=== PATIENT | female | born 1975 | race Hispanic/Latino ===

== ENCOUNTER 2018-06-10 19:30 | Emergency (ER) | payer OTHER ==
[2018-06-10] MEDS ORDERED: ONDANSETRON 4 MG/2 ML VIAL ONE (20:28)
[2018-06-10] MEDS ORDERED: FENTANYL CITR 100 MCG/2 ML ONE (20:28)
[2018-06-10 20:37] LABS: Potassium 3.2 mmol/L (3.5-5.1)
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
[2018-06-10 20:56] LABS: Absolute Lymphocytes (CBC) 4.7 K/uL (0.7-4.9); Absolute Monocytes 1.1 K/uL (0.1-1.3); Absolute Neutrophil 9.5 K/uL (1.8-8.0); Basophils % 0.7 % (0-1.3); Eosinophils % 1.3 % (0-4.4); Hematocrit 40.8 % (36.0-45.0); Lymphocytes % 30.4 % (15.3-44.8); MCH 29.6 pg (27.0-35.0); MCV 86.3 fL (80-100); MPV 11.2 fL (7.6-11.3); Monocytes % 6.8 % (3.3-12.3); RBC Red Blood Cell Count 4.73 M/uL (3.86-4.86)
[2018-06-10] MEDS ORDERED: KETOROLAC 30 MG/ML INJ ONE (21:01)
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
--- NOTE | 2018-06-11 12:52 | EKG ---
Test Date: 2018-06-10 Test Time: 19:38:42 [employer]: ASHLEE MEASUREMENT RESULTS: Intervals: Rate: 78 MI: 140 QRSD: 84 QT: 382 QTc: 435 [place]: P: 1 MI: 140 QRS: 92 T: 11 INTERPRETIVE STATEMENTS: Normal sinus rhythm Rightward axis Borderline ECG Compared to ECG 12/27/2017 12:59:02 Right-axis deviation now present Sinus arrhythmia no longer present Left-axis deviation no longer present Myocardial infarct finding no longer present Electronically Signed On 06-11-18 12:51:17 CDT by Harpreet Carbajal
== END 2018-06-10 22:33 | disposition home or self-care (01) ==
LOC: ER 19:30
DX: S93.402A Sprain of unspecified ligament of left ankle, initial encounter (principal); S83.92XA Sprain of unspecified site of left knee, initial encounter; S39.81XA Other specified injuries of abdomen, initial encounter; F17.210 Nicotine dependence, cigarettes, uncomplicated; V49.50XA Passenger injured in collision with unspecified motor vehicles in traffic accident, initial encounter; Y93.89 Activity, other specified; Y92.89 Other specified places as the place of occurrence of the external cause; Y99.9 Unspecified external cause status
CPT/HCPCS: 36415; 71045; 71250; 72170; 74176; 80048; 85025; 93005; 96374; 96375; 99285; J2405; J3010

== ENCOUNTER 2023-12-06 11:51 | Inpatient (IN) | payer BC, OTHER ==
--- OUTSIDE RECORDS SUMMARY | 2023-12-06 11:54 | XMS REPORT | Continuity of Care Document ---
Author Name Unknown Address [address] [place] [address] [address] [place] [address] [facility] thconnect Address [address] [facility] [address] [place] [address] Care Team Providers Care Gunnery/Ordnance Officer Name Role Phone Unavailable Unavailable Unavailable Problems Condition Name Condition Details Condition Category Status Onset Date Resolution Date Last Treatment Date Treating Clinician Comments Source Mild intermitte nt asthma without complicati on Mild intermitte nt asthma without complicati on Problem Active [facility] Chronic seasonal allergic rhinitis Chronic seasonal allergic rhinitis Problem Active [facility] Medications Ordered Medication Name Filled Medication Name Start Date Stop Date Current Medication? Ordering Clinician Indication Dosage Frequency Signature (SIG) Comments Components Source Diclofenac Sodium Diclofenac Sodium 06-16 00:00: 00 08-15 00:00 :00 No Michael Levi 1 tablet with food or milk [facility] Tramadol HCl Tramadol HCl 06-16 00:00: 00 06-26 00:00 :00 No Michael Levi 1 tablet as needed [facility] Proventil HFA Proventil HFA 13 00:00: 00 Yes Michael Levi 2 puffs as needed [facility] Encounters Start Date/Time End Date/Time Encounter Type Admission Type Attending Clinicians Care Facility Care Department Encounter ID Source 2018-06-21 14:08:00 2018-06-21 14:08:00 Outpatient [facility] [id number] [facility] 2018-06-16 15:15:00 2018-06-16 15:15:00 Outpatient [facility] Medicine [facility] [id number] [facility]
[2023-12-06 12:29] LABS: Specific Gravity 1.028 (1.005-1.030)
[2023-12-06 12:32] LABS: Specific Gravity 1.028 (1.005-1.030); Urine Bacteria <20 /HPF (<20); Urine Bilirubin NEGATIVE (Negative); Urine Blood 3+ (OVER) (Negative); Urine Clarity Extremely Turbid (Clear); Urine Color Yellow (Yellow); Urine Glucose NEGATIVE (Negative); Urine Mucus 1+ /HPF (None Seen); Urine Protein 1+ (Negative); Urine RBC >50 /HPF (None Seen); Urine Urobilinogen Normal (Normal); Urine pH 5.5 (5.0-7.0)
[2023-12-06] MEDS ORDERED: MORPHINE 4 MG/ML SYR ONE (12:35)
[2023-12-06] MEDS ORDERED: ONDANSETRON 4 MG/2 ML VIAL ONE (12:35)
[2023-12-06] MEDS ORDERED: NA CHLORIDE 0.9% 1,000 ML ONE (12:37)
[2023-12-06 12:47] LABS: Absolute Lymphocytes (CBC) 1.6 K/uL (0.7-4.9); Hematocrit 41.8 % (36.0-45.0); Lymphocytes % 10.2 % (15.3-44.8); MCV 89.2 fL (80-100); MPV 9.6 fL (7.6-11.3); Platelets 296 thou/uL (152-406); RBC Red Blood Cell Count 4.69 M/uL (3.86-4.86)
[2023-12-06 13:11] LABS: Albumin 3.4 g/dL (3.4-5.0); Bilirubin Total 0.7 mg/dL (0.2-1.0); Potassium 3.7 mEq/L (3.5-5.1); Protein, Total 7.8 g/dL (6.4-8.2)
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
--- NOTE | 2023-12-06 14:00 | ER ---
Nurse's Notes [facility] Name: Alexandria Carl Age: 48 yrs Sex: Female : 1975 Arrival Date: 12/06/2023 Time: 11:51 Bed 19 Private MD: Diagnosis: UTI/ Urinary tract infection, site not specified Presentation: 12/06 12:03 Chief complaint: Patient states: since Thursday having bilateral "kidney pain", received ko1 abx from [facility], treated for UTI but still having pain. Coronavirus screen: At this time, the client does not indicate any symptoms associated with coronavirus-19. Ebola Screen: No symptoms or risks identified at this time. Initial Sepsis Screen: Does the patient meet any 2 criteria? No. Patient's initial sepsis screen is negative. Does the patient have a suspected source of infection? No. Patient's initial sepsis screen is negative. Risk Assessment: Do you want to hurt yourself or someone else? Patient reports no desire to harm self or others. Onset of symptoms was December 06, 2023. 12:03 Method Of Arrival: Ambulatory ko1 12:03 Acuity: NITESH 3 ko1 Triage Assessment: 12:04 General: Appears uncomfortable, Behavior is cooperative, appropriate for age. Pain: ko1 Complains of pain in left low back and right low back. 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 - Social history:: Smoking status: Patient denies any tobacco usage or history of. Screenin:12 [facility] ED Fall Risk Assessment (Adult) History of falling in the last 3 months, me1 including since admission No falls in past 3 months (0 pts) Confusion or Disorientation No (0 pts) Intoxicated or Sedated No (0 pts) Impaired Gait No (0 pts) Mobility Assist Device Used No (0 pt) Altered Elimination No (0 pt) Score/Fall Risk Level 0 - 2 = Low Risk Provided non-skid footwear, Hourly rounding (assess needs \\T\\ fall precautionary measures) done. Abuse screen: Denies threats or abuse. Nutritional screening: No deficits noted. Tuberculosis screening: No symptoms or risk factors identified. Assessment: 12:12 General: Appears uncomfortable, ill, well groomed, well developed, well nourished, me1 Behavior is calm, cooperative, appropriate for age, Reports since Thursday having bilateral "kidney pain", received abx from [facility], treated for UTI but still having pain. Pain: Complains of pain in back and right low back and left low back Pain does not radiate. Pain currently is 9 out of 10 on a pain scale. Quality of pain is described as sharp, Pain began gradually, 2-3 days ago. Is continuous. Neuro: Level of Consciousness is awake, alert, obeys commands, Oriented to person, place, time, situation, Appropriate for age. Cardiovascular: Capillary refill < 3 seconds Patient's skin is warm and dry. Respiratory: Airway is patent Respiratory effort is even, unlabored, Respiratory pattern is regular, symmetrical. : Reports pain in bilateral flank(s), since 5 days ago. Vital Signs: 12:03 BP 139 / 95; Pulse 77; Resp 16; Pulse Ox 100% ; Weight 68.04 kg; Height 5 ft. 7 in. ; ko1 12:15 BP 131 / 86; Pulse 82; Resp 18; Pulse Ox 100% on R/A; me1 13:00 BP 116 / 73; Pulse 68; Resp 18; Pulse Ox 100% on R/A; me1 13:58 Temp 98.1(O); sb4 14:00 BP 126 / 83; Pulse 70; Resp 16; Pulse Ox 100% on R/A; me1 15:00 BP 115 / 73; Pulse 72; Resp 17; Pulse Ox 100% on R/A; me1 12:03 Body Mass Index 23.49 (68.04 kg, 170.18 cm) ko1 ED Course: 11:58 Patient arrived in ED. mg5 12:01 Gaby Boswell PA-C is PHCP. sb4 12:01 Dimas Christianson MD is Attending Physician. sb4 12:04 Triage completed. ko1 12:04 Arm band placed on right wrist. Patient placed in an exam room, on a stretcher, on ko1 pulse oximetry, Patient notified of wait time. 12:11 Kay Dugan, VIVI is Primary Nurse. me1 12:12 Patient has correct armband on for positive identification. Bed in low position. Call me1 light in reach. Side rails up X 1. Provided Education on: POC. Verbalized understanding. . 12:12 No provider procedures requiring assistance completed. me1 12:23 Test, Urine Sent. me1 12:23 UAM Sent. me1 12:33 Inserted saline lock: 22 gauge in right antecubital area, using aseptic technique. me1 12:34 CBC with Diff Sent. me1 12:34 CMP Sent. me1 13:30 CT Abd/Pelvis - IV Contrast Only In Process Unspecified. EDMS 13:59 Jocelyne Ames MD is Hospitalizing Provider. sb4 15:41 Patient admitted, IV remains in place. me1 Administered Medications: 12:42 Drug: NS 0.9% IV 1000 ml IV at 1 bolus Per protocol; 1000 mL bolus Route: IV; Rate: 1 me1 bolus; Site: right antecubital; 15:19 Follow up: IV Status: Completed infusion; IV Intake: 1000ml me1 12:42 Drug: Ondansetron IVP 4 mg IVP once; over 2 minutes Route: IVP; Site: right antecubital;me1 14:02 Follow up: Response: No adverse reaction; Nausea is decreased me1 12:42 Drug: morphine IVP or IV 4 mg IVP once over 4 mins Route: IVP; Infused Over: 4 mins; me1 Site: right antecubital; 14:02 Follow up: Response: No adverse reaction; Pain is decreased me1 14:05 Drug: Rocephin IV 1 grams IV at calculated rate once; Given slow IV push per pharmacy me1 instructions Route: IV; Rate: calculated rate; Site: right antecubital; 14:07 Follow up: Response: No adverse reaction; IV Status: Completed infusion me1 Medication: 12:12 VIS not applicable for this client. me1 Intake: 15:19 IV: 1000ml; Total: 1000ml. me1 Outcome: 13:59 Decision to Hospitalize by Provider. sb4 15:41 Admitted to Med/surg accompanied by tech, via wheelchair, room 202, with chart, Report me1 called to VIVI Muñoz 15:41 Condition: stable 15:41 Instructed on the need for admit, 15:57 Patient left the ED. cm10 Signatures: Dispatcher [employer] Frannie Dominguez, RN RN ko1 Gaby Boswell PA-C PA-C sb4 Karo Zhang RN RN cm10 Kay Dugan RN RN me1 Rossy Pedersen mg5 Corrections: (The following items were deleted from the chart) 12:12 12:03 Chief complaint: Patient states: since Thursday having bilateral "kidney pain", me1 received abx from [place], treated for UTI but still having pain. ko1 12:44 12:12 BP 156 / 101; Pulse 84bpm; Resp 18bpm; Pulse Ox 100% RA; me1 me1
--- NOTE | 2023-12-06 14:00 | EDPHYS ---
Physician Documentation [facility] Name: Alexandria Carl Age: 48 yrs Sex: Female : 1975 Arrival Date: 12/06/2023 Time: 11:51 Bed 19 Private MD: ED Physician Dimas Christianson HPI: 12/06 12:22 This 48 yrs old Female presents to ER via Ambulatory with complaints of flank sb4 pain. 12:23 The patient complains of pain in the left low back and right low back. The pain does sb4 not radiate. Onset: The symptoms/episode began/occurred 1 week(s) ago, and became worse yesterday. Modifying factors: The symptoms are alleviated by nothing. the symptoms are aggravated by palpation/percussion. Associated signs and symptoms: Pertinent positives: dizziness, fever, urinary frequency, nausea, Pertinent negatives: dysuria, hematuria, pain radiating to the lower extremities. The patient has been recently seen by a physician: the patient's primary care provider, 4 day(s) ago. UTI symptoms x 1 week. started keflex 6 days ago, did not improve. started on levaquin 4 days ago, still not improving. complains of bilateral back pain, fever, chills, nausea. 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 - Social history:: Smoking status: Patient denies any tobacco usage or history of. ROS: 12:23 Respiratory: Negative for shortness of breath, cough, wheezing, and pleuritic chest sb4 pain, 12:23 Constitutional: Positive for chills, fever, 12:23 Abdomen/GI: Positive for nausea, 12:23 Back: Positive for flank pain, bilaterally, 12:23 : Positive for urinary frequency, pressure, 12:23 All other systems are negative, Exam: 12:23 Head/Face: Normocephalic, atraumatic. Eyes: Extra-ocular motions intact. Periorbital sb4 areas with no swelling, redness, or edema. ENT: Mucous membranes moist. Cardiovascular: Regular rate and rhythm with a normal S1 and S2. Respiratory: Lungs have equal breath sounds bilaterally, clear to auscultation and percussion. No rales, rhonchi or wheezes noted. No increased work of breathing, no retractions or nasal flaring. Abdomen/GI: Soft, non-tender, no distension. Skin: Warm, dry with normal turgor. Normal color with no rashes, no lesions, and no evidence of cellulitis. MS/ Extremity: Pulses equal, no cyanosis. Neurovascular intact. Full, normal range of motion. Neuro: Awake and alert, GCS 15, oriented to person, place, time, and situation. Motor strength 5/5 in all extremities. Sensory grossly intact. 12:23 Constitutional: The patient appears alert, awake, uncomfortable, 12:23 Back: CVA tenderness, that is moderate, is noted bilaterally, Vital Signs: 12:03 BP 139 / 95; Pulse 77; Resp 16; Pulse Ox 100% ; Weight 68.04 kg; Height 5 ft. 7 in. ; ko1 12:15 BP 131 / 86; Pulse 82; Resp 18; Pulse Ox 100% on R/A; me1 13:00 BP 116 / 73; Pulse 68; Resp 18; Pulse Ox 100% on R/A; me1 13:58 Temp 98.1(O); sb4 14:00 BP 126 / 83; Pulse 70; Resp 16; Pulse Ox 100% on R/A; me1 15:00 BP 115 / 73; Pulse 72; Resp 17; Pulse Ox 100% on R/A; me1 12:03 Body Mass Index 23.49 (68.04 kg, 170.18 cm) ko1 MDM: 12:01 Patient medically screened. sb4 12:23 Differential diagnosis: nephrolithiasis, pyelonephritis, UTI. sb4 13:59 Data reviewed: vital signs, nurses notes, lab test result(s), radiologic studies, I sb4 have discussed the patient's presentation/case with the attending Emergency Department Physician; and as a result, I will admit patient. Consideration of Admission/Observation Patient was admitted/placed on observation. Management of patient was discussed with the following: Hospitalist: paloma silva. Historians other than the Patient: Spouse/Significant Other: . Care significantly affected by the following chronic conditions: PKD. Counseling: I had a detailed discussion with the patient and/or guardian regarding the historical points, exam findings, and any diagnostic results supporting the discharge/admit diagnosis, lab results, radiology results, the need for further work-up and treatment in the hospital. 12/06 12:06 Order name: UAM; Complete Time: 12:35 sb4 12/06 12:06 Order name: Test, Urine; Complete Time: 12:32 sb4 12/06 12:22 Order name: CBC with Diff; Complete Time: 12:51 sb4 12/06 12:22 Order name: CMP; Complete Time: 13:15 sb4 12/06 12:22 Order name: Urine Culture sb4 12/06 14:56 Order name: T4 Free; Complete Time: 15:29 EDMS 12/06 14:56 Order name: Urinalysis w/ reflexes EDMS 12/06 14:56 Order name: CBC with Automated Diff EDMS 12/06 14:56 Order name: CBC with Automated Diff EDMS 12/06 14:56 Order name: CBC with Automated Diff EDMS 12/06 14:56 Order name: CBC with Automated Diff EDMS 12/06 14:56 Order name: Comprehensive Metabolic Panel EDMS 12/06 14:56 Order name: Comprehensive Metabolic Panel EDMS 12/06 14:57 Order name: Comprehensive Metabolic Panel EDMS 12/06 14:57 Order name: Comprehensive Metabolic Panel EDMS 12/06 14:57 Order name: Lipid Profile EDMS 12/06 14:57 Order name: Lipid Profile EDMS 12/06 14:57 Order name: Magnesium EDMS 12/06 14:57 Order name: Magnesium EDMS 12/06 14:57 Order name: Magnesium EDMS 12/06 14:57 Order name: Magnesium EDMS 12/06 14:57 Order name: Phosphorus EDMS 12/06 14:57 Order name: Phosphorus EDMS 12/06 14:57 Order name: Phosphorus EDMS 12/06 14:57 Order name: Phosphorus EDMS 12/06 12:22 Order name: CT Abd/Pelvis - IV Contrast Only; Complete Time: 13:46 sb4 12/06 14:56 Order name: CONS Physician Consult EDMS 12/06 12:22 Order name: IV Saline Lock; Complete Time: 12:34 sb4 12/06 12:22 Order name: Labs collected and sent; Complete Time: 12:34 sb4 Administered Medications: 12:42 Drug: NS 0.9% IV 1000 ml IV at 1 bolus Per protocol; 1000 mL bolus Route: IV; Rate: 1 me1 bolus; Site: right antecubital; 15:19 Follow up: IV Status: Completed infusion; IV Intake: 1000ml me1 12:42 Drug: Ondansetron IVP 4 mg IVP once; over 2 minutes Route: IVP; Site: right antecubital;me1 14:02 Follow up: Response: No adverse reaction; Nausea is decreased me1 12:42 Drug: morphine IVP or IV 4 mg IVP once over 4 mins Route: IVP; Infused Over: 4 mins; me1 Site: right antecubital; 14:02 Follow up: Response: No adverse reaction; Pain is decreased me1 14:05 Drug: Rocephin IV 1 grams IV at calculated rate once; Given slow IV push per pharmacy me1 instructions Route: IV; Rate: calculated rate; Site: right antecubital; 14:07 Follow up: Response: No adverse reaction; IV Status: Completed infusion me1 Disposition: 17:01 Co-signature as Attending Physician, Dimas Christianson MD I reviewed the patient's care rn provided by the Advanced Practice Provider and agree with the diagnosis and treatment plan. Disposition Summary: 12/06/23 13:59 Hospitalization Ordered Notes: Hospitalization Status: Observation sb4 Provider: Jocelyne Amse sb4 [facility] sb[facility] Condition: Fair sb4 Problem: new sb4 Symptoms: are unchanged sb4 Bed/Room Type: Standard sb4 Room Assignment: 202(12/06/23 14:46) eb Diagnosis - UTI/ Urinary tract infection, site not specified sb4 Forms: - Medication Reconciliation Form sb4 - SBAR form sb4 - Leadership Thank You Letter sb4 Signatures: Dispatcher [employer] Dimas Brizuela MD MD rn Botello, Elizabeth eb Oliver, Kathy, RN RN Gaby Cavazos PA-C PA-C sb4 Kay Dugan RN RN me1 Corrections: (The following items were deleted from the chart) 14:46 13:59 sb4 eb
[2023-12-06] MEDS ORDERED: CEFTRIAXONE 1000 MG/VIAL ONE (14:03)
[2023-12-06] MEDS ORDERED: ALBUTEROL 2.5 MG/3 ML NEB SOL NEB PRN (14:48)
--- NOTE | 2023-12-06 15:04 | P.HP ---
Certification for Inpatient Patient admitted to: Inpatient With expected LOS: <2 Midnights <Tania Brysonguera - Last Filed: 12/06/23 15:26> Patient History Date of Service: 12/06/23 Reason for admission: Urinary tract infection, PKD History of Present Illness: Ms. Carl is a 48-year-old female with a history of polycystic kidney disease presented to ER via ambulatory with complaints of flank pain. Patient complains of pain in the left lower back and right lower back. The pain do not radiate. Severity of pain is 10 out of 10 which has improved after coming to the emergency room. Associated symptoms are fever, chills, dizziness, urinary frequency and nausea. The symptoms began 1 week ago and her PCP prescribed Keflex 6 days ago and it did not improve started on Levaquin 4 days ago. Patient report her pain got worse yesterday patient, patient has been taking Tylenol 502 tablets every 4 hours for pain relief. ED course Vital signs BP 139/95, pulse 77, respiration 16, pulse ox 100% and temperature 98.1 EKG normal sinus rhythm. Laboratory evaluation CBC showing leukocytosis elevated WBC of 15.7, basic metabolic panel is remarkable for elevated liver enzymes AST of 173, ALT 484. Urinalysis is positive for microscopic hematuria. CT abdomen and pelvis with contrast-No acute intra-abdominal or pelvic finding. Nonobstructive bilateral nephrolithiasis.Enlarged kidneys bilaterally with innumerable lesions of varying complexity consistent with polycystic kidney disease.A possibly solid lesion in the left upper pole measuring 2.2 cm is difficult to exclude. The lesions are in completely assessed on this single phase exam. Admitting the patient with a diagnosis of urinary tract infection. - Past Medical/Surgical History Has patient received pneumonia vaccine in the past: Yes -: Polycystic Kidney Disease Psychosocial/ Personal History: Lives at home with her - Social History Smoking Status: Current some day smoker Smoking therapy provided: Yes Patient receptive to therapy: Yes (Receptive) Alcohol use: Yes CD- Drugs: No Caffeine use: Yes Place of Residence: Home <BrysonEric martinez - Last Filed: 12/06/23 15:26> Date of Service: 12/06/23 <Jocelyne Ames - Last Filed: 12/06/23 15:40> Allergies NKDA Allergy (Uncoded 11/09/15 23:58) Unknown No Known Allergies Allergy (Uncoded 03/13/16 17:37) Unknown Physical Examination - Physical Exam General: Alert, Oriented x3 HEENT: Atraumatic, Normocephalic Neck: Supple, 2+ carotid pulse no bruit Respiratory: Clear to auscultation bilaterally, Normal air movement Cardiovascular: No edema, Normal pulses Capillary refill: <2 Seconds Gastrointestinal: Normal bowel sounds, Soft and benign Musculoskeletal: No clubbing, No swelling Integumentary: No rashes, No significant lesion Neurological: Normal gait, Normal speech - Studies Laboratory Data (last 24 hrs) 12/06/23 12/06/23 12:32 12:32 WBC 15.70 H Hgb 14.0 Hct 41.8 Plt Count 296 Sodium 138 Potassium 3.7 BUN 18 Creatinine 0.73 Glucose 91 Total Bilirubin 0.7 AST 173 H ALT 484 H Alkaline Phosphatase 281 H <Eric Bryson - Last Filed: 12/06/23 15:26> - Studies Laboratory Data (last 24 hrs) 12/06/23 12/06/23 12:32 12:32 WBC 15.70 H Hgb 14.0 Hct 41.8 Plt Count 296 Sodium 138 Potassium 3.7 BUN 18 Creatinine 0.73 Glucose 91 Total Bilirubin 0.7 AST 173 H ALT 484 H Alkaline Phosphatase 281 H <Jocelyne Ames - Last Filed: 12/06/23 15:40> Assessment and Plan - Problems (Diagnosis) (1) Urinary tract infection Current Visit: Yes Status: Acute Qualifiers: Urinary tract infection type: acute cystitis Hematuria presence: with hematuria Qualified Code(s): N30.01 - Acute cystitis with hematuria (2) Polycystic kidney disease Current Visit: Yes Status: Chronic (3) Leucocytosis Current Visit: Yes Status: Acute Qualifiers: Leukocytosis type: unspecified Qualified Code(s): D72.829 - Elevated white blood cell count, unspecified - Plan Urinary tract infection Acute cystitis with microscopic hematuria Leukocytosis Polycystic kidney disease Transaminitis * UTI-patient came in with complaints of flank pain bilateral, nausea, fever chills dizziness and increased urinary frequency.CBC showing elevated WBCs 15.7, positive urine with microscopic hematuria.Patient is known for polycystic kidney disease and kidney stones.Admitted the patient, IV hydration, IV antibiotics, analgesics as needed.Monitor electrolytes and replete * Transaminitiselevated AST 73, ALT 484, patient reports that she has been taking Tylenol 500 mg 2 tablet every 4 hours to get rid of the pain and patient reports that she uses alcohol occasionally. Discussed avoid avoid medications or supplements without consulting medical practitioner or PCP. Discussed to abstain alcohol, patient voiced understanding. * PKD-patient reports she is known to have PKD and kidney stones discussed the CT scan findings, consulted with urologist for further evaluation management of PKD. Consulted from Dr. Hogue urologist, recommendation appreciated. * CT abdomen and pelvis with contrast-No acute intra-abdominal or pelvic finding. Nonobstructive bilateral nephrolithiasis.Enlarged kidneys bilaterally with innumerable lesions of varying complexity consistent with polycystic kidney disease.A possibly solid lesion in the left upper pole measuring 2.2 cm is difficult to exclude. The lesions are incompletely assessed on this single phase exam CODE STATUSfull code DVT prophylaxisLovenox Dietregular Discharge Plan: Home Plan to discharge in: 24 Hours - Advance Directives Does patient have a Living Will: No Does patient have a Durable POA for Healthcare: No - Code Status/Comfort Care Code Status Assessed: Yes (full code) Code Status: Full Code Critical Care: No Time Spent Managing Pts Care (In Minutes): 55 (minutes) <Eric Bryson - Last Filed: 12/06/23 15:26> - Plan Pt seen and examined. I agree with the note by the OUTPATIENT FACILITY PHYSICAL THERAPIST. Pt is a 48 yo female with past medical history of ovarian cyst and polycystic kidney disease who presents bilateral low back pain that started about a week ago and progressively worsened. Of note, her PCP prescribed keflex which pt started last Thursday or 6 days ago. It did not improve and the PCP prescribed levaquin on thursday or 4 days ago, but the symptoms persisted. On admission, lab studies show WBC 15.7, Hgb 14, K 3.7, Cr 0.78, AST 178, ALT [address] abd shows bilateral non-obstructive nephrolithiasis, polycystic kidney disease and 2cm solid lesion in left upper pole. Urinalysis is positive for UTI. At bedside, pt is in NAD. ROS is significant for bilateral flank pain A/P: Sepsis 2/2 acute pyelonephritis: Will continue zosyn and follow up urine cx. CT abd shows early onset of pyelonephritis. 2cm renal lesion: Will follow up with MRI abd for evaluation. Transaminitis: AST 173, ALT 484 and Alk phos 281. Pt was taking tylenol 1000mg Q4h at home. Will avoid hepatotoxin or tylenol. Will check hepatitis panel and trend LFTs. Polycystic kidney disease: It is chronic Bilateral Non-obstructive nephrolithiasis: Will consult Urology. DVT ppx: SCD Code: full <Jocelyne Ames - Last Filed: 12/06/23 15:40>
[2023-12-06] MEDS ORDERED: SODIUM CHLORIDE 0.9% 10ML INJ IV PRN (15:26)
[2023-12-06] MEDS: PIPER TAZO 3.375 GM in NA CHLORIDE 0.9% 100 ML IV SCH (16:57)
[2023-12-06] MEDS: MORPHINE 2 MG/ML SYR IV PRN (16:57)
[2023-12-06] MEDS: NA CHLORIDE 0.9% 1,000 ML IV SCH (16:57)
[2023-12-06 16:58] VITALS: BMI 23.5
[2023-12-06] MEDS: TRAMADOL HCL 50 MG TAB PO PRN (22:39)
[2023-12-07] MEDS: PIPER TAZO 3.375 GM in NA CHLORIDE 0.9% 100 ML IV SCH ×3 (00:43→17:52)
[2023-12-07] MEDS: NA CHLORIDE 0.9% 1,000 ML IV SCH ×4 (00:52→13:19)
[2023-12-07] MEDS: TRAMADOL HCL 50 MG TAB PO PRN ×3 (04:58→19:36)
[2023-12-07 06:21] LABS: Absolute Lymphocytes (CBC) 2.3 K/uL (0.7-4.9); Hematocrit 36.3 % (36.0-45.0); Lymphocytes % 15.6 % (15.3-44.8); MCV 89.3 fL (80-100); MPV 9.3 fL (7.6-11.3); Platelets 278 thou/uL (152-406); RBC Red Blood Cell Count 4.07 M/uL (3.86-4.86)
[2023-12-07 06:41] LABS: Albumin 2.6 g/dL (3.4-5.0); Bilirubin Total 0.6 mg/dL (0.2-1.0); Magnesium 1.9 mg/dL (1.6-2.4); Phosphorus 2.3 mg/dL (2.5-4.9); Potassium 4.1 mEq/L (3.5-5.1); Protein, Total 6.3 g/dL (6.4-8.2)
[2023-12-07] MEDS: ENOXAPARIN 40 MG/0.4 ML SQ SCH (08:07)
[2023-12-07] MEDS: PANTOPRAZOLE 40 MG INJ IVP SCH (08:07)
--- NOTE | 2023-12-07 09:24 | P.PN ---
Subjective Date of Service: 12/07/23 Chief Complaint: Urinary tract infection, PKD Pt is resting comfortably in bed. Her pain is much better after switching from Morphine to tramadol. No other complaints. Review of Systems Unremarkable General: Unremarkable Eyes: Unremarkable ENT: Unremarkable Respiratory: Unremarkable Cardiovascular: Unremarkable Gastrointestinal: Unremarkable Genitourinary: Unremarkable Musculoskeletal: Unremarkable Integumentary: Unremarkable Neurological: Unremarkable Lymphatics: Unremarkable Physical Examination - Vital Signs Temperature: 97.1 F Blood Pressure: 121/60 Pulse: 76 Respirations: 15 Pulse Ox (%): 96 - Physical Exam General: Alert, In no apparent distress, Oriented x3 HEENT: Atraumatic, Normocephalic, PERRLA Neck: Supple, 2+ carotid pulse no bruit Respiratory: Clear to auscultation bilaterally, Normal air movement, Diminished Cardiovascular: No edema, Normal pulses, Regular rate/rhythm, Normal S1 S2 Capillary refill: <2 Seconds Gastrointestinal: Normal bowel sounds, Soft and benign, Non-distended Musculoskeletal: No clubbing, No swelling Integumentary: No rashes, No breakdown Neurological: Normal speech, Normal strength at 5/5 x4 extr, Normal tone, Sensation intact Lymphatics: No axilla or inguinal lymphadenopathy - Studies Laboratory Data (last 24 hrs) 12/06/23 12/06/23 12:32 12:32 WBC 15.70 H Hgb 14.0 Hct 41.8 Plt Count 296 Sodium 138 Potassium 3.7 BUN 18 Creatinine 0.73 Glucose 91 Total Bilirubin 0.7 AST 173 H ALT 484 H Alkaline Phosphatase 281 H Assessment And Plan - Plan Sepsis 2/2 acute pyelonephritis: Will continue zosyn and follow up urine cx. CT abd shows early onset of pyelonephritis. 2cm renal lesion: Will follow up with MRI abd for evaluation. Transaminitis: AST 66 <- 173, ALT 282 <- 484 and Alk phos 239<- 281. Pt was taking tylenol 1000mg Q4h at home. Will avoid hepatotoxin or tylenol. Will check hepatitis panel and trend LFTs. Polycystic kidney disease: It is chronic Bilateral Non-obstructive nephrolithiasis: Will continue IVF and consult Urology. DVT ppx: SCD Code: full Dispo: Pending hospital course.
[2023-12-07] MEDS: MORPHINE 2 MG/ML SYR IV PRN (12:01)
[2023-12-08] MEDS: NA CHLORIDE 0.9% 1,000 ML IV SCH ×2 (00:20→16:25)
[2023-12-08] MEDS: PIPER TAZO 3.375 GM in NA CHLORIDE 0.9% 100 ML IV SCH ×3 (00:22→16:25)
[2023-12-08] MEDS: MORPHINE 2 MG/ML SYR IV PRN ×2 (00:29→12:19)
[2023-12-08] MEDS: TRAMADOL HCL 50 MG TAB PO PRN ×3 (03:13→19:45)
[2023-12-08 06:16] LABS: Absolute Lymphocytes (CBC) 1.6 K/uL (0.7-4.9); Hematocrit 36.5 % (36.0-45.0); Lymphocytes % 9.1 % (15.3-44.8); MCV 89.2 fL (80-100); MPV 8.9 fL (7.6-11.3); Platelets 274 thou/uL (152-406); RBC Red Blood Cell Count 4.09 M/uL (3.86-4.86)
[2023-12-08 06:36] LABS: Albumin 2.9 g/dL (3.4-5.0); Magnesium 2.3 mg/dL (1.6-2.4); Phosphorus 2.3 mg/dL (2.5-4.9); Potassium 3.8 mEq/L (3.5-5.1); Protein, Total 7.3 g/dL (6.4-8.2)
--- NOTE | 2023-12-08 07:11 | P.PN ---
Date of Service: 12/08/23 Subjective: Physical Exam: Vitals: reviewed GEN: Alert, oriented, NAD HEENT: Normal conjunctiva, sclera anicteric CV: Regular rate & rhythm, no edema Pulm: Nonlabored respiraitons, diminished at bases b/l ABD: Soft, nontender, nondistended Neuro: Normal speech, normal affect Problem List: Sepsis secondary to acute pyelonephritis Polycystic kidney disease, chronic Bilateral non-obstructive nephrolithiasis 2cm renal lesion Transaminitis Plan: Sepsis secondary to acute pyelonephritis Polycystic kidney disease, chronic Bilateral non-obstructive nephrolithiasis 2cm renal lesion Transaminitis CT abdomen (12/06): Enlarged kidneys with innumerable lesions of varying complexity consistent with Polycystic kidney disease. Solid 2.2cm solid lesion in left upper pole. non-emergent renal protocol MRI recommended Urinalysis concerning for UTI urine cx: prelim no growth contine empiric zosyn Urology consulted Continue IV fluids PRN analgesics / antiemetics continue PPI LFT elevated on admission, improving Patient reported taking 1000mg tylenol Q4h at home. Trend LFTs DVT ppx: Lovenox
[2023-12-08] MEDS: PANTOPRAZOLE 40 MG INJ IVP SCH (08:37)
[2023-12-08] MEDS: ENOXAPARIN 40 MG/0.4 ML SQ SCH (08:38)
[2023-12-08] MEDS ORDERED: POTASSIUM 25 MEQ EFFERV TAB PO ONE (18:54)
[2023-12-08] MEDS: POTASS/SODIUM PHOSPHATE 1 PKT POWD.PACK PO SCH ×3 (19:45→21:44)
[2023-12-09] MEDS: PIPER TAZO 3.375 GM in NA CHLORIDE 0.9% 100 ML IV SCH ×3 (00:02→16:46)
[2023-12-09] MEDS: TRAMADOL HCL 50 MG TAB PO PRN ×4 (02:30→21:03)
[2023-12-09] MEDS: NA CHLORIDE 0.9% 1,000 ML IV SCH ×3 (03:00→15:13)
[2023-12-09 05:52] LABS: Absolute Lymphocytes (CBC) 1.9 K/uL (0.7-4.9); Hematocrit 33.3 % (36.0-45.0); Lymphocytes % 16.6 % (15.3-44.8); MPV 9.2 fL (7.6-11.3); Platelets 281 thou/uL (152-406); RBC Red Blood Cell Count 3.75 M/uL (3.86-4.86)
[2023-12-09 06:12] LABS: Albumin 2.5 g/dL (3.4-5.0); Bilirubin Total 0.7 mg/dL (0.2-1.0); Magnesium 2.2 mg/dL (1.6-2.4); Phosphorus 2.4 mg/dL (2.5-4.9); Potassium 3.8 mEq/L (3.5-5.1); Protein, Total 6.7 g/dL (6.4-8.2)
[2023-12-09] MEDS: POTASS/SODIUM PHOSPHATE 1 PKT POWD.PACK PO SCH (08:19)
[2023-12-09] MEDS: PANTOPRAZOLE 40 MG INJ IVP SCH (08:19)
[2023-12-09] MEDS: ENOXAPARIN 40 MG/0.4 ML SQ SCH (08:19)
[2023-12-09] MEDS ORDERED: POTASSIUM CL SA 10 MEQ TAB PO ONE (09:00)
[2023-12-09 22:13] VITALS: O2SAT 100
[2023-12-10] MEDS: PIPER TAZO 3.375 GM in NA CHLORIDE 0.9% 100 ML IV SCH ×2 (00:16→08:15)
[2023-12-10] MEDS: NA CHLORIDE 0.9% 1,000 ML IV SCH ×4 (02:38→20:51)
[2023-12-10 06:34] LABS: Magnesium 2.3 mg/dL (1.6-2.4); Phosphorus 3.2 mg/dL (2.5-4.9); Potassium 3.9 mEq/L (3.5-5.1)
[2023-12-10] MEDS: TRAMADOL HCL 50 MG TAB PO PRN ×3 (08:11→20:52)
[2023-12-10] MEDS: ENOXAPARIN 40 MG/0.4 ML SQ SCH (08:11)
[2023-12-10] MEDS: PANTOPRAZOLE 40 MG INJ IVP SCH (08:11)
[2023-12-10] MEDS ORDERED: POTASSIUM CL SA 10 MEQ TAB PO ONE (09:00)
[2023-12-10 11:32] LABS: Absolute Lymphocytes (CBC) 2.2 K/uL (0.7-4.9); Hematocrit 35.4 % (36.0-45.0); Lymphocytes % 20.4 % (15.3-44.8); MCV 88.7 fL (80-100); MPV 9.2 fL (7.6-11.3); Platelets 339 thou/uL (152-406); RBC Red Blood Cell Count 3.99 M/uL (3.86-4.86)
[2023-12-10 11:40] LABS: Albumin 2.6 g/dL (3.4-5.0); Bilirubin Total 0.4 mg/dL (0.2-1.0); Potassium 4.4 mEq/L (3.5-5.1); Protein, Total 7.2 g/dL (6.4-8.2)
--- NOTE | 2023-12-10 11:57 | RAD REPORT ---
EXAM DESCRIPTION: CT - Abdomen Pelvis W/Wo Contrast - 12/10/2023 10:13 am CLINICAL HISTORY: renal cell mass-triple phase contrast COMPARISON: Abdomen Pelvis W Contrast dated 12/06/2023; Abdomen Pelvis W Contrast dated 12/27/2017 ; Abdomen Pelvis W Contrast dated 03/13/2016; CT-STONE PROTOCOL dated 12/31/2009 TECHNIQUE: Thin cut axial CT imaging of the abdomen and pelvis was performed before and after intrav enous administration of 100 Isovue 300 common utilizing renal mass protocol. Multiplanar reformats we re generated and reviewed. All CT scans are performed using dose optimization technique as appropriate and may include automated exposure control or mA/KV adjustment according to patient size. FINDINGS: No suspicious findings in the lung bases apart from trace bilateral pleural effusions. The liver again demonstrates innumerable small cysts. No appreciable enhancing lesions. Spleen, adren al glands, and pancreas show no suspicious findings. Gallbladder and biliary tree are also without ortiz spicious finding. Sequelae of polycystic kidneys again seen. Some of the cysts demonstrate calcifications along the wal l or septa. Nonobstructing bilateral renal calculi versus pyramidal calcifications, not exceeding 3 m m in greatest size Heterogeneous 2.7 x 2.3 cm lesion along the anterior aspect of the left renal loy ex at the upper to interpolar level demonstrates crescentic areas of relative hyperdensity within on the noncontrast phase, with no appreciable definitive enhancement allowing for differences in techniq ue. No other appreciable solid masses. The opacified renal collecting systems are unremarkable. No dilated bowel loops or bowel wall thickening. Colonic diverticulosis. No free air, free fluid or i nflammatory stranding. No hernia, mass or bulky lymphadenopathy. The urinary bladder is without signi ficant finding. No suspicious bony findings. IMPRESSION: The lesion of concern in the left renal upper to interpolar region anteriorly demonstrat es crescentic mildly hyperdense components on precontrast imaging, with no definitive enhancement oth erwise. This is favored to represent a complex cyst. A follow-up MRI with renal mass protocol is chris mmended in 6 months to re-evaluate the finding. Other stable findings including sequelae of bilateral polycystic kidney, and numerous small liver cys ts, benign in appearance.
[2023-12-10] MEDS: AMOX/K CLAV 875 MG TAB PO SCH (20:56)
[2023-12-11] MEDS: NA CHLORIDE 0.9% 1,000 ML IV SCH ×2 (04:11→11:00)
[2023-12-11] MEDS: TRAMADOL HCL 50 MG TAB PO PRN ×2 (04:11→17:09)
[2023-12-11] MEDS: PANTOPRAZOLE 40 MG INJ IVP SCH (08:34)
[2023-12-11] MEDS: ENOXAPARIN 40 MG/0.4 ML SQ SCH (08:34)
[2023-12-11] MEDS: AMOX/K CLAV 875 MG TAB PO SCH (08:34)
[2023-12-11 14:12] VITALS: BP 121/65; TEMP 97.4
[2023-12-11 16:05] LABS: Albumin 2.9 g/dL (3.4-5.0); Bilirubin Total 0.3 mg/dL (0.2-1.0); C-Reactive Protein 69.5 mg/L (<3.00); Potassium 3.8 mEq/L (3.5-5.1); Protein, Total 7.6 g/dL (6.4-8.2)
[2023-12-11 17:32] LABS: Hepatitis B surface AG Interp. Nonreactive (Nonreactive)
[2023-12-11 17:33] LABS: Hepatitis B Core IgM Nonreactive (Nonreactive); Hepatitis C Virus Ab Nonreactive (Nonreactive)
== END 2023-12-11 18:33 | disposition home or self-care (01) | DRG 872 ==
LOC: ER 11:51 → ERHOLD 15:00 → 2ND 15:43
PROVIDERS: ADMIT Hospitalist; ATTEND Hospitalist
DX: A41.9 Sepsis, unspecified organism (principal); Q61.3 Polycystic kidney, unspecified; N10 Acute pyelonephritis; N28.9 Disorder of kidney and ureter, unspecified; D72.829 Elevated white blood cell count, unspecified; R31.29 Other microscopic hematuria; R74.01 Elevation of levels of liver transaminase levels; F17.200 Nicotine dependence, unspecified, uncomplicated
CPT/HCPCS: 36415; 74177; 74178; 80048; 80053; 80061; 80074; 81001; 81025; 83735; 84100; 84439; 85025; 86038; 86140; 87086; 87088; 96361; 96374; 96375; 99285; C9113; J0696; J1650; J2270; J2405; J2543; J7030; Q9967

== ENCOUNTER 2025-09-02 10:42 | Emergency (ER) | payer BC ==
[2025-09-02] MEDS ORDERED: IBUPROFEN 200 MG TAB PO ONE (12:09)
--- NOTE | 2025-09-02 13:02 | RAD REPORT ---
EXAMINATION: CT MAXILLOFACIAL WITHOUT CONTRAST CLINICAL INDICATION: Facial pain. Status post fall TECHNIQUE: Axial images were obtained through the facial bones and orbits without intravenous contras t. Sagittal and coronal reconstructions were created from the data. One or more of the following dose reduction techniques were used: Automated exposure control, adjustment of the mA and/or kV accor ding to patient size, and/or iterative reconstruction. Unless otherwise specified, incidental findings do not require dedicated imaging follow-up. COMPARISON: No prior exam. FINDINGS: No fracture seen. Small amount of air superficial to the right aspect of the mandible near midline perhaps related to l aceration. No TMJ dislocation The globes are normal size and density. No fluid within the sinuses. IMPRESSION: No fracture seen
--- NOTE | 2025-09-02 13:03 | RAD REPORT ---
EXAMINATION: CT HEAD WITHOUT CONTRAST CT CERVICAL SPINE WITHOUT CONTRAST CLINICAL INDICATION: Head and neck injury status post fall. Head and neck pain TECHNIQUE: Axial CT images from the skull base to the vertex without intravenous contrast. Axial CT i mages through the cervical spine were obtained without intravenous contrast. Sagittal and coronal reformatted images were created from the data set. Coronal and sagittal reformatted images were creat ed from the data set. One or more of the following dose reduction techniques were used: Automated exposure control, adjustment of the mA and/or kV according to patient size, and/or iterative reconstr uction. Unless otherwise specified, incidental findings do not require dedicated imaging follow-up. [id number]. Comparison: none FINDINGS: An intracranial bleed is not seen. Ventricles are normal in caliber. No significant hypodensity within the brain No extra-axial fluid collection. No fluid within the sinuses/mastoids No fracture or dislocation is seen involving the cervical spine. Mild posterior subluxation C5 on C6. Significant prevertebral soft tissue swelling not noted. IMPRESSION: No acute intracranial abnormality noted A cervical fracture is not seen. Mild posterior subluxation C5 on C6 of indeterminate age. If the patient continues to have symptoms to suggest acute [employer]/spinal/ligamentous pathology then MRI would be recommended
[2025-09-02] MEDS ORDERED: AMOX/K CLAV 875 MG TAB ONE (13:40)
--- NOTE | 2025-09-02 13:43 | EDPHYS ---
Physician Documentation [facility] Name: Alexandria Carl Age: 49 yrs Sex: Female : 1975 Arrival Date: 09/02/2025 Time: 10:42 Bed 13 Private MD: ED Physician Kevon Carpio HPI: 09/02 13:36 This 49 yrs old Female presents to ER via Ambulatory with complaints of Jaw hammad Injury, Eye Problem, Ear Pain. 13:36 The patient is experiencing LEFT BROW CONTUSION. Onset: The symptoms/episode hammad began/occurred last night. Duration: the symptoms are intermittent. Aggravated by nothing. Alleviated by cold application. Associated signs and symptoms: Pertinent positives: None. Pertinent negatives: None. Patient does not utilize any form of vision correction. Severity of symptoms: At their worst the symptoms were moderate in the emergency department the symptoms are unchanged. The patient has not experienced similar symptoms in the past. 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 - Infectious Disease History:: Denies. - Social history:: Smoking status: Patient reports the use of cigarette tobacco products, denies chronic smoking, but will smoke occasionally. - Family history:: not pertinent. ROS: 13:36 Constitutional: Negative for fever, chills, and weight loss, Eyes: Negative for injury, hammad pain, redness, and discharge, ENT: Negative for injury, pain, and discharge, Neck: Negative for injury, pain, and swelling, Cardiovascular: Negative for chest pain, palpitations, and edema, Respiratory: Negative for shortness of breath, cough, wheezing, and pleuritic chest pain, Abdomen/GI: Negative for abdominal pain, nausea, vomiting, diarrhea, and constipation, Back: Negative for injury and pain, : Negative for injury, bleeding, discharge, and swelling, MS/Extremity: Negative for injury and deformity, Skin: Negative for injury, rash, and discoloration, Psych: Negative for depression, anxiety, suicide ideation, homicidal ideation, and hallucinations, Allergy/Immunology: Negative for hives, rash, and allergies, Endocrine: Negative for neck swelling, polydipsia, polyuria, polyphagia, and marked weight changes, 13:36 Neuro: Positive for headache, LEFT BROW CONTUSION RIGHT LOWER JAW PAIN, Exam: 13:36 Constitutional: This is a well developed, well nourished patient who is awake, alert, hammad and in no acute distress. Eyes: Pupils equal round and reactive to light, extra-ocular motions intact. Lids and lashes normal. Conjunctiva and sclera are non-icteric and not injected. Cornea within normal limits. Periorbital areas with no swelling, redness, or edema. ENT: Nares patent. No nasal discharge, no septal abnormalities noted. Tympanic membranes are normal and external auditory canals are clear. Oropharynx with no redness, swelling, or masses, exudates, or evidence of obstruction, uvula midline. Mucous membranes moist. Neck: Trachea midline, no thyromegaly or masses palpated, and no cervical lymphadenopathy. Supple, full range of motion without nuchal rigidity, or vertebral point tenderness. No Meningismus. Chest/axilla: Normal chest wall appearance and motion. Nontender with no deformity. No lesions are appreciated. Cardiovascular: Regular rate and rhythm with a normal S1 and S2. No gallops, murmurs, or rubs. Normal PMI, no JVD. No pulse deficits. Respiratory: Lungs have equal breath sounds bilaterally, clear to auscultation and percussion. No rales, rhonchi or wheezes noted. No increased work of breathing, no retractions or nasal flaring. Abdomen/GI: Soft, non-tender, with normal bowel sounds. No distension or tympany. No guarding or rebound. No evidence of tenderness throughout. Back: No spinal tenderness. No costovertebral tenderness. Full range of motion. Skin: Warm, dry with normal turgor. Normal color with no rashes, no lesions, and no evidence of cellulitis. MS/ Extremity: Pulses equal, no cyanosis. Neurovascular intact. Full, normal range of motion., bilateral aka Neuro: Awake and alert, GCS 15, oriented to person, place, time, and situation. Cranial nerves II-XII grossly intact. Motor strength 5/5 in all extremities. Sensory grossly intact. Cerebellar exam normal. Normal gait. Vital Signs: 10:51 BP 157 / 103; Pulse 71; Resp 18; Temp 98.4; Pulse Ox 100% ; Weight 72.57 kg; Height 5 me1 ft. 8 in. ; Pain 3/10; 14:00 BP 131 / 88; Pulse 70; Resp 18; Pulse Ox 100% ; rg5 10:51 Body Mass Index 24.33 (72.57 kg, 172.72 cm) me1 10:51 Pain Scale: Adult me1 MDM: 10:45 Medical Screening Exam initiated hammad 13:38 Differential diagnosis: Corneal abrasion of left eye. Corneal ulcer of left eye. hammad Foreign body in left eye. Acute iritis of left eye. Data reviewed: vital signs, nurses notes, radiologic studies, CT scan. Consideration of Admission/Observation Escalation of care including admission/observation considered. Independent interpretation of the following test(s) in the Emergency Department CT Scan: My interpretation is CT HEAD / FACE / C SPINE. Test considered but Not performed: Labs: no cbc, no cmp. Historians other than the Patient: pt and her mom. Care significantly affected by the following chronic conditions: ovarian cyst, pckd, asthma. Counseling: I had a detailed discussion with the patient and/or guardian regarding the historical points, exam findings, and any diagnostic results supporting the discharge/admit diagnosis, radiology results. 09/02 12:00 Order name: CT Head C Spine; Complete Time: 13:35 hammad 09/02 12:00 Order name: CT Facial Bones W/O Con; Complete Time: 13:35 hammad 09/02 12:00 Order name: Ice pack; Complete Time: 12:48 hammad Administered Medications: 12:14 Drug: Ibuprofen PO 600 mg PO once Route: PO; jb4 13:41 Drug: Amoxicillin-Clavulanate PO 875 mg PO once Route: PO; jb4 Disposition Summary: 09/02/25 13:43 Discharge Ordered Notes: Location: Home hammad Problem: new hammad Symptoms: have improved hammad Condition: Stable hammad Diagnosis - Contusion of other part of head - left brow and jaw anteriorly hammad - Fall on same level, unspecified hammad Followup: hammad - With: Private Physician - When: 2 - 3 days - Reason: Recheck today's complaints, Continuance of care, Re-evaluation by your physician Followup: hammad - With: Russell Rosales DDS - When: 2 - 3 days - Reason: Recheck today's complaints, Re-evaluation by your physician Discharge Instructions: - Discharge Summary Sheet hammad - Contusion hammad - Fall Prevention in the Home, Adult hammad - Jaw Contusion hammad - Contusion, [id number] hammad - Fall Prevention in the Home, Adult, [id number] hammad - Jaw Contusion, [id number] hammad Forms: - Medication Reconciliation Form hammad - Antibiotic Education hammad - Prescription Opioid Use hammad - Patient Portal Instructions hammad - Leadership Thank You Letter [facility] Prescriptions: - Augmentin 875-125 mg Oral tablet - take 1 tablet ORAL route every 12 hours for 7 days; 14 tablet; Refills: 0, hammad Product Selection Permitted - Diclofenac Sodium 75 mg Oral Tablet Sustained Release - take 1 tablet ORAL route 2 times per day; 30 tablet; Refills: 0, Product [facility] Selection Permitted Signatures: Dispatcher [employer] EDKevon Madrid MD MD cha Bryson, James, RN RN jb4 Kay Dugan RN RN me1 Corrections: (The following items were deleted from the chart) 12:00 12:00 Head C Spine MPR Wo Con+CT.RAD.BRZ ordered. EDMS EDMS 12:00 12:00 Facial Bones W/ MPR+CT.RAD.BRZ ordered. EDMS EDMS
--- NOTE | 2025-09-02 13:43 | ER ---
[facility]'s Notes [facility] Name: Alexandria Carl Age: 49 yrs Sex: Female : 1975 Arrival Date: 09/02/2025 Time: 10:42 Bed 13 Private MD: Diagnosis: Contusion of other part of head-left brow and jaw anteriorly;Fall on same level, unspecified Presentation: 09/02 10:51 Chief complaint: Patient states: fell over her fan last night and has pain to jaw, me1 worse on the right side. Bruising and tenderness noted above left eye. Pain level 3/10 at rest, 10/10 to right jaw with movement. Coronavirus screen: Vaccine status: Patient reports receiving the 2nd dose of the covid vaccine. Ebola Screen: No symptoms or risks identified at this time. Initial Sepsis Screen: Does the patient meet any 2 criteria? No. Patient's initial sepsis screen is negative. Does the patient have a suspected source of infection? No. Patient's initial sepsis screen is negative. Risk Assessment: Do you want to hurt yourself or someone else? Patient reports no desire to harm self or others. Onset of symptoms was September 01, 2025 at 23:00. 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 - Infectious Disease History:: Denies. - Social history:: Smoking status: Patient reports the use of cigarette tobacco products, denies chronic smoking, but will smoke occasionally. - Family history:: not pertinent. Screenin:14 [facility] ED Fall Risk Assessment (Adult) History of falling in the last 3 months, jb4 including since admission No falls in past 3 months (0 pts) Confusion or Disorientation No (0 pts) Intoxicated or Sedated No (0 pts) Impaired Gait No (0 pts) Mobility Assist Device Used No (0 pt) Altered Elimination No (0 pt) Score/Fall Risk Level 0 - 2 = Low Risk Oriented to surroundings, Maintained a safe environment. Abuse screen: Denies threats or abuse. Nutritional screening: No deficits noted. Tuberculosis screening: No symptoms or risk factors identified. Assessment: 11:14 General: Appears in no apparent distress. comfortable, Behavior is calm, cooperative, jb4 appropriate for age. Pain: Complains of pain in right ear, left eye, chin and right jaw Pain does not radiate. Pain currently is 5 out of 10 on a pain scale. Neuro: Level of Consciousness is awake, alert, obeys commands, Oriented to person, place, time, situation. Cardiovascular: Patient's skin is warm and dry. Respiratory: Airway is patent Respiratory effort is even, unlabored, Respiratory pattern is regular, symmetrical. Derm: Skin is intact, Skin is pink, warm \T\ dry. Musculoskeletal: Circulation, motion, and sensation intact. Range of motion: intact in all extremities. 12:30 Reassessment: Patient appears in no apparent distress at this time. Patient and/or jb4 family updated on plan of care and expected duration. Pain level reassessed. Patient is alert, oriented x 3, equal unlabored respirations, skin warm/dry/pink. Vital Signs: 10:51 BP 157 / 103; Pulse 71; Resp 18; Temp 98.4; Pulse Ox 100% ; Weight 72.57 kg; Height 5 me1 ft. 8 in. ; Pain 3/10; 14:00 BP 131 / 88; Pulse 70; Resp 18; Pulse Ox 100% ; rg5 10:51 Body Mass Index 24.33 (72.57 kg, 172.72 cm) me1 10:51 Pain Scale: Adult id1 ED Course: 10:45 Patient arrived in ED. im 10:45 Kevon Carpio MD is Attending Physician. hammad 10:53 Triage completed. me1 10:53 Arm band placed on Patient placed in an exam room. me1 11:10 Kody Bojorquez RN is Primary Nurse. jb4 11:14 Patient has correct armband on for positive identification. Bed in low position. Call jb4 light in reach. Side rails up X 1. Provided Education on: plan of care. 12:26 CT Head C Spine In Process Unspecified. EDMS 12:26 CT Facial Bones W/O Con In Process Unspecified. EDMS 12:30 No provider procedures requiring assistance completed. Patient did not have IV access jb4 during this emergency room visit. 13:41 Russell Rosales DDS is Referral Physician. hammad Administered Medications: 12:14 Drug: Ibuprofen PO 600 mg PO once Route: PO; jb4 13:41 Drug: Amoxicillin-Clavulanate PO 875 mg PO once Route: PO; jb4 Medication: 11:14 VIS not applicable for this client. jb4 Outcome: 13:43 Discharge ordered by . hammad 14:01 Discharged to home ambulatory, rg5 14:01 Condition: stable 14:01 Discharge instructions given to patient, Instructed on discharge instructions, Demonstrated understanding of instructions, Prescriptions given X 2, 14:02 Patient left the ED. rg5 Signatures: Dispatcher [employer] EDKevon Madrid MD MD cha Bryson, James, RN RN jb4 Angela Schofield Michelle, RN RN me1 Faisal Calderon RN RN rg5
[2025-09-02 18:10] VITALS: TEMP 98.4; O2SAT 100
[2025-09-02 18:11] VITALS: BP 131/88
== END 2025-09-02 14:02 | disposition home or self-care (01) ==
LOC: ER 10:42
DX: S00.83XA Contusion of other part of head, initial encounter (principal); W18.30XA Fall on same level, unspecified, initial encounter; F17.210 Nicotine dependence, cigarettes, uncomplicated
CPT/HCPCS: 70450; 70486; 72125; 76377; 99283